=== PATIENT | male | born 1955 | race Two or more races ===

== ENCOUNTER 2018-11-29 04:53 | Day surgery (SDC) | payer OTHER ==
[2018-11-28 17:55] VITALS: BMI 36.6
[2018-11-29] MEDS ORDERED: LIDOCAINE HCL 2% 100 MG/5 ML DISP.SYRIN ONE (07:37)
[2018-11-29] MEDS ORDERED: BUPIVACAINE HCL/PF 0.5% (5 MG/ML) 30 ML VIAL IJ ONE ×2 (07:40→08:31)
[2018-11-29] MEDS ORDERED: PROPOFOL 20 ML ONE (07:54)
[2018-11-29] MEDS ORDERED: MIDAZOLAM HCL 2 MG/2 ML SINGLE DOSE VIAL ONE (08:09)
[2018-11-29] MEDS ORDERED: CEFEPIME HCL/D5W 2 GM/50 ML PREMIX IVPB ONE (08:25)
[2018-11-29] MEDS ORDERED: ceFAZolin SODIUM 1 GM VIAL IVPB ONE (08:25)
[2018-11-29] MEDS ORDERED: BUPIVACAINE LIPOSOME/PF (EXPAREL) 266 MG/20 ML VIAL NR ONE (08:31)
[2018-11-29] MEDS ORDERED: ONDANSETRON 4 MG/2 ML VIAL ONE ×2 (08:32→09:37)
[2018-11-29] MEDS ORDERED: DEXAMETHASONE SOD PHOSPHATE 4 MG/1 ML VIAL ONE (08:32)
[2018-11-29] MEDS ORDERED: BUPIVACAINE LIPOSOME/PF (EXPAREL) 266 MG/20 ML VIAL ONE (08:33)
[2018-11-29] MEDS ORDERED: NEOSTIGMINE METHYLSULFATE 0.5 MG/ML - 10 ML MDV ONE (08:43)
[2018-11-29] MEDS ORDERED: ACETAMINOPHEN INJECTION 100 ML IVPB ONE (08:50)
--- NOTE | 2018-11-29 09:31 | OP ---
Operative Note - Note: Operative Date: 11/29/18 Pre-Operative Diagnosis: biliary colic Operation: laparoscopic cholecystectomy Findings: chronic cholecystitis Post-Operative Diagnosis: Same as Pre-op Surgeon: Garcia Spivey Policy Officer: Babs Lopez Anesthesia: General Specimens Removed: Gall bladder Estimated Blood Loss (mls): 20 Operative Report Dictated: Yes
[2018-11-29] MEDS ORDERED: ONDANSETRON 4 MG/2 ML VIAL IVPUSH ONE ×2 (09:38→12:00)
[2018-11-29] MEDS ORDERED: METOCLOPRAMIDE HCL INJECTION 10 MG/2 ML VIAL IVPUSH ONE (10:05)
--- NOTE | 2018-11-29 10:05 | SURG ---
Surgery Airport Operations Supervisor Note Airport Operations Supervisor: Babs Lopez PA-C Date of Service: 11/29/18 Diagnosis: billiar colic Procedure: laparoscopic cholecystectomy I was present for the entirety of the operative procedure. For further detail, please refer to operative report. Visit type - Case Type Case Type: Scheduled - Emergency Emergency Visit: No - New patient This patient is new to me today: Yes Date on this admission: 11/29/18
[2018-11-29] MEDS ORDERED: METOCLOPRAMIDE HCL INJECTION 10 MG/2 ML VIAL IVPB ONE (10:10)
[2018-11-29] MEDS ORDERED: PANTOPRAZOLE SODIUM 40 MG VIAL IVPUSH ONE ×2 (10:41→11:00)
--- NOTE | 2018-11-29 11:39 | OP ---
DATE OF OPERATION: 11/29/2018 PREOPERATIVE DIAGNOSIS: Biliary colic, cholelithiasis. POSTOPERATIVE DIAGNOSIS: Biliary colic, cholelithiasis. PROCEDURE: Laparoscopic cholecystectomy. SURGEON: Garcia Spivey MD HEADSTART TEACHER: DEMETRIUS Vance SPECIMEN: Gallbladder. COMPLICATIONS: None. Patient tolerated the procedure well. HISTORY: This is a 63-year-old male diabetic, hypertensive, hypercholesterolemia with fatty liver who presents with right upper quadrant pain. Ultrasound was consistent with cholelithiasis, adenomyosis, and sludge in the gallbladder. The patient underwent upper endoscopy and evaluation, which revealed no further source of pathology and was referred for surgical evaluation. 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 DESCRIPTION OF PROCEDURE: In the operating room, he was placed in supine position. After the induction of general anesthesia, he was prepped and draped in usual sterile fashion. time-out observed. The operation began with a standard Nichol approach and periumbilical incision. Peritoneal cavity was entered, and a 12-mm port . Insufflation to a pressure of 15 mmHg was accomplished. Under direct vision, three 5-mm ports were then introduced, 1 in the epigastric region and 2 in the right upper quadrant. The patient was then positioned in the reverse Trendelenburg position. The gallbladder was identified. It was retracted superiorly with some degree of difficulty given the extensive size of the liver. However, the hilar region of the gallbladder was able to be exposed, and the dissection was performed to release some adhesions to the duodenum with blunt dissection. The hilar structure was then dissected bluntly. Attached was the cystic duct and artery. The cystic duct and artery were completely skeletonized, and a critical view of safety was established with clear visualization of the common bile duct proximal and distal to the cystic duct junction. Cystic duct and cystic artery were then doubly ligated with Endo Clips and divided with Endo Jun. The gallbladder was then dissected off the liver bed using a hook dissector taking care to avoid any injury to the liver bed. Bleeding was controlled with cautery. The gallbladder was placed in an EndoCatch bag and removed through the umbilical port. Final check for hemostasis was performed. The right upper quadrant was irrigated and suctioned and the fascia at the umbilical ports with 0 Vicryl sutures. The skin was closed with 4-0 Monocryl at port sites. Dermabond was applied. Infiltration with Marcaine and Exparel was performed at all port sites. Dermabond was applied. The patient was returned to the recovery room awake and alert in sterile condition. He tolerated the procedure well. Mick [id number]
[2018-11-29 12:53] VITALS: TEMP 97.6
[2018-11-29 14:26] VITALS: BP 123/79; PULSE 71
--- NOTE | 2018-12-02 17:46 | PATH ---
Surgical Pathology Report Patient Name: SMITH LARIOS [facility]. Rec. #: [id number] /Age/Gender: 1955 (Age: 63) / M Account: [id number] Location: [facility] SURGICAL Taken: 11/29/2018 Received: 11/29/2018 Reported: 12/02/2018 Physicians: Garcia Spivey M.D. Specimen(s) Received GALLBLADDER Clinical History Gallstones Final Diagnosis GALLBLADDER, CHOLECYSTECTOMY: CHRONIC CHOLECYSTITIS. CHOLELITHIASIS. Electronically Signed Mirza Smith M.D. Gross Description Received in formalin, labeled "gallbladder," is a 8.5 x 3.0 x 1.5 cm. gallbladder with a 0.2 cm. in length portion of cystic duct attached. The outer surface is garcia-pink with a focal defect and varies from smooth to shaggy. The lumen contains garcia-green, tenacious bile as well as multiple yellow, small choleliths averaging less than 0.1 cm in greatest dimension. The mucosa is garcia and velvety. The wall of the gallbladder measures up to 0.3 cm. in thickness. Microfilm Operator sections are submitted in one cassette. /11/29/2018 saudi11/29/2018
== END 2018-11-29 14:15 | disposition home or self-care (01) ==
LOC: JASU-SURG 04:53
PROVIDERS: ATTEND Surgery
PROC: 0FT44ZZ Resection of Gallbladder, Percutaneous Endoscopic Approach (ICD-10-PCS; principal; 2018-11-29 08:00)
DX: K80.20 Calculus of gallbladder without cholecystitis without obstruction (principal); K80.50 Calculus of bile duct without cholangitis or cholecystitis without obstruction; I10 Essential (primary) hypertension; E11.9 Type 2 diabetes mellitus without complications; Z79.84 Long term (current) use of oral hypoglycemic drugs
CPT/HCPCS: 82962; 88304-TC; 94760; J0131